=== PATIENT | male | born 2000 | race Caucasian/White ===

== ENCOUNTER → 2024-06-06 | Emergency (ER) | payer OTHER ==
[~2024-06-06] VITALS: Ht 175.3 cm; Wt 77.3 kg
[2024-06-06 10:47] VITALS: TEMP 98.8
[2024-06-06 13:00] VITALS: BP 118/64; PULSE 88; RESP 18
[2024-06-06] MEDS: AZITHROMYCIN 500 MG TABLET PO ONE (13:36)
== END | disposition still patient (30) ==
LOC: EMS 10:14
DX: J18.9 Pneumonia, unspecified organism (principal)
CPT/HCPCS: 99284; 71250; 74150; 72192; J0456